=== PATIENT | female | born 1985 | race American Indian/Alaskan Native ===

== ENCOUNTER 2017-04-21 05:57 | Inpatient (IN) | payer OTHER ==
--- NOTE | 2017-04-20 09:56 | Anesthesia Consultation ---
Anesthesia Consult and Med Hx Date of service: 04/20/17 - Airway Anesthetic Teeth Evaluation: Good ROM Head & Neck: Adequate Mental/Hyoid Distance: Adequate Mallampati Class: Class II Intubation Access Assessment: Probably Good - Pulmonary Exam CTA: Yes - Cardiac Exam Cardiac Exam: RRR - Pre-Operative Health Status ASA Pre-Surgery Classification: ASA2 Proposed Anesthetic Plan: General - Pulmonary Hx Smoking: No - Cardiovascular System Hx Hypertension: Yes (x 2 yrs - exercise tolerance adequate) Hx Coronary Artery Disease: No Hx Heart Attack/AMI: No Hx Heart Murmur: No Hx Peripheral Vascular Disease: No - Central Nervous System Hx Psychiatric Problems: No - Gastrointestinal Hx Gastroesophageal Reflux Disease: No - Other Systems Hx Alcohol Use: Yes (about twice per month) Hx Cancer: No
[2017-04-20 10:09] LABS: Basophils # (Auto) 0.1 K/mm3 (0.0-0.1); Basophils % (Auto) 0.7 % (0.0-1.8); Eosinophils # (Auto) 0.6 K/mm3 (0.0-0.4); Eosinophils % (Auto) 7.1 % (0.0-4.3); Hematocrit 42.9 % (30.3-42.9); Hemoglobin 14.1 gm/dl (10.1-14.3); Lymphocytes # (Auto) 2.9 K/mm3 (1.2-5.4); Lymphocytes % (Auto) 34.1 % (13.4-35.0); Mean Corpuscular HGB Conc 33 % (30-34); Mean Corpuscular Hemoglobin 28 pg (28-32); Mean Corpuscular Volume 86 fl (79-97); Monocytes # (Auto) 0.8 K/mm3 (0.0-0.8); Monocytes % (Auto) 9.6 % (0.0-7.3); Platelet Count 333 K/mm3 (140-440); Red Blood Count 4.97 M/mm3 (3.65-5.03); Red Cell Distribution Width 13.5 % (13.2-15.2)
[2017-04-20 10:25] LABS: BUN/Creatinine Ratio 10; Blood Urea Nitrogen 7 mg/dL (7-17); Calcium 9.2 mg/dL (8.4-10.2); Hemolysis Index 25
[~2017-04-21 05:57] MED LIST: MARCAINE 0.5% INFILTRATI NR; NACL 0.9% 1000 ML 1,000 ML IV SCH; NACL P/F VIAL (10 ML) INFILTRATI NR; PEPCID PO NR; SUBLIMAZE IV NR; VERSED IV NR; XYLOCAINE 1% 20 mL INFILTRATI NR
[2017-04-21] MEDS ORDERED: SUBLIMAZE ONE (07:12)
[2017-04-21] MEDS ORDERED: DIPRIVAN 10 MG/ML IV ONE (07:13)
[2017-04-21] MEDS ORDERED: SUBLIMAZE IV ONE (07:18)
[2017-04-21] MEDS ORDERED: ZOFRAN IV PRN (07:18)
--- NOTE | 2017-04-21 07:18 | Anesthesia Day of Surgery ---
Anesthesia Day of Surgery - Day of Surgery Patient Examined: Yes Patient H&P Reviewed: Yes Patient is NPO: Yes
[2017-04-21] MEDS ORDERED: XYLOCAINE MPF 2% ONE (07:22)
[2017-04-21] MEDS ORDERED: ZEMURON IV ONE (07:23)
[2017-04-21] MEDS ORDERED: MARCAINE 0.5% 60 ML INFILTRATI ONE (07:43)
[2017-04-21] MEDS ORDERED: ANCEF/STERILE WATER 2 GM/20 ML 2 GM/20 ML SYRINGE IV NR (08:00)
[2017-04-21] MEDS ORDERED: VERSED IV NR (08:00)
--- NOTE | 2017-04-21 08:02 | History and Physical Report ---
History of Present Illness Date of examination: 04/21/17 Chief complaint: Pelvic mass History of present illness: Pt is a 31yo BF LMP 11/2015 presents for surgical evaluation and treatment of a symptomatic pelvic mass. Pelvic u/s showed the uterus 8.3 x 4 x 4cm with a 20 x 15cm complex mass with solid and cystic areas suggestive of a complex ovarian tumor. CA125 -45 (slightly elevated). She is therefore scheduled for a Exploratory Laparotomy with Ovarian cystectomy, possible Oophorectomy. Past History Past Medical History: hypertension Past Surgical History: no surgical history Family/Genetic History: hypertension Social history: no significant social history, single Medications and Allergies Allergies Allergy/AdvReac Type Severity Reaction Status Date / Time No Known Allergies Allergy Unverified 04/17/17 11:18 Home Medications Medication Instructions Recorded Confirmed Last Taken Type Hydrochlorothiazide 12.5 mg PO DAILY 04/17/17 04/17/17 Unknown History amLODIPine [Norvasc] 5 mg PO DAILY 04/17/17 04/17/17 Unknown History Active Meds: Active Medications Hydromorphone HCl (Dilaudid) 0.5 mg IV Q10MIN PRN PRN Reason: Pain , Severe (7-10) Sodium Chloride (Nacl 0.9% 1000 Ml) 1,000 mls @ 42 mls/hr IV DIRECT TIFFANIE Last Admin: 04/21/17 07:46 Dose: 42 mls/hr Midazolam HCl (Versed) 2 mg IV PREOP NR Stop: 04/21/17 23:59 Ondansetron HCl (Zofran) 4 mg IV ONCE PRN PRN Reason: Nausea And Vomiting Review of Systems All systems: negative - Vital Signs Vital signs: Vital Signs Temp Pulse Resp BP 98.8 F 76 16 160/90 04/20/17 09:20 04/20/17 09:20 04/20/17 09:20 04/20/17 09:20 Temp Pulse Resp BP Pulse Ox 97.6 F 85 16 130/77 100 04/21/17 07:23 04/21/17 07:23 04/21/17 07:23 04/21/17 07:23 04/21/17 07:23 - Physical Exam Breasts: Positive: deferred Cardiovascular: Regular rate Lungs: Positive: Clear to auscultation Abdomen: Positive: normal appearance, soft Genitourinary (Female): Positive: normal external genitalia Uterus: Positive: normal size Adnexa: right: mass Extremities: Positive: normal Results Result Diagrams: 04/20/17 09:30 04/20/17 09:30 Abnormal lab results 04/20/17 04/20/17 Range/Units 09:30 09:30 [place] % (Auto) 9.6 H (0.0-7.3) % Eos % (Auto) 7.1 H (0.0-4.3) % Eos # 0.6 H (0.0-0.4) K/mm3 Chloride 97.9 L (98-107) mmol/L Glucose 103 H (65-100) mg/dL All other labs normal. Ultrasound: report reviewed Assessment and Plan - Patient Problems (1) Pelvic mass in female Onset Date: 04/21/17 Current Visit: Yes Status: Acute Plan to address problem: A: Pelvic mass - most likely ovarian in origin P: Admit for an Exploratory Laparotomy with Ovarian cystectomy possible Oophorectomy
[2017-04-21] MEDS ORDERED: NACL 0.9% IR ONE (08:48)
[2017-04-21] MEDS ORDERED: NEO SYNEPHRINE/NS Syringe(OR USE) IV ONE (09:00)
[2017-04-21] MEDS ORDERED: DECADRON ONE (09:01)
[2017-04-21] MEDS ORDERED: DILAUDID ONE (09:14)
[2017-04-21] MEDS ORDERED: LACTATED RINGERS 1,000 ML ONE (09:34)
[2017-04-21] MEDS ORDERED: ZOFRAN ONE (09:57)
[2017-04-21] MEDS ORDERED: ROBINUL ONE ×2 (09:58)
[2017-04-21] MEDS ORDERED: NEOSTIGMINE ONE (09:58)
[2017-04-21] MEDS ORDERED: TORADOL ONE ×2 (10:50→10:51)
--- NOTE | 2017-04-21 10:55 | Operative Report ---
Operative Report Operative Report: Date of procedure: 04/21/2017 Pre-operative diagnosis: 1. Pelvic mass 2. Left ovarian complex mass Post-operative diagnosis: Same Procedure name(s): 1. Exploratory laparotomy 2. Left oophorectomy Surgeon: Thomas Keen MD Polisher Eyeglass Frames: None Anesthesia: CESARIO Block followed by general endotracheal intubation EBL: 100 mL's Findings: A 20 x 20 cm complex left ovarian mass. A normal right ovary. Normal uterus with normal tubes bilaterally. Procedure: After the patient was correctly identified, she was prepped and draped in the usual sterile fashion and placed in the dorsal lithotomy position. First a skin knife was used to make a vertical skin incision, extending the incision about 5 centimeters above the umbilicus. The fascia was nicked in the midline and extended superiorly and inferiorly. The peritoneum was entered and there was copious amounts of clear straw-colored fluid, which a specimen was obtained and sent to pathology. Exploration of the pelvic organs found a large complex mass occupying the entire pelvis and extending beyond the umbilicus. The incision was extended vertically so that the mass could be lifted from the pelvic cavity intact. The mass was examined and found to be originating from the left ovary. The right ovary was found to be normal, and the uterus is normal. The left fallopian tube was excised from the mass using the Enseal, by clamping and cauterizing and cutting across the mesosalpinx until the entire left fallopian tube was freed. The utero-ovarian ligament was also clamped cauterized and cut using the Enseal, thus freeing the mass which was sent to pathology. Copious amounts of irrigation performed. Again the left fallopian tube was found to be normal and excellent hemostasis was assured. At this point the procedure was considered complete. The Tisseel sealant was sprayed over the left oophorectomy site. All instruments were removed from the abdomen, and the fascia along with peritoneum was closed together using 0 PDS suture in a running fashion. The subcutaneous layer was made hemostatic using Bovie cautery, and re-approximated using 0 Vicryl suture in figure 8 configurations, and the skin edges were re-approximated using 4 Vicryl suture in a sub-cuticular fashion. The patient tolerated the procedure well and was transferred to recovery room in stable condition.
[2017-04-21] MEDS ORDERED: NARCAN 0.4 MG/1 ML IV PRN (10:59)
[2017-04-21] MEDS ORDERED: BENADRYL IV PRN (10:59)
[2017-04-21] MEDS ORDERED: REGLAN IV PRN (10:59)
[2017-04-21] MEDS ORDERED: NACL 0.9% 1000 ML 1,000 ML IV SCH (11:00)
[2017-04-21] MEDS ORDERED: MORPHINE PCA 30MG/30ML IV SCH (11:00)
[2017-04-21] MEDS ORDERED: SODIUM CHLORIDE FLUSH SYRINGE 10 ML IV PRN (11:01)
[2017-04-21] MEDS: DILAUDID IV PRN ×2 (11:11→11:23)
[2017-04-21] MEDS ORDERED: ceFAZolin 1 GM in NACL 0.9% 20 ML IV SCH ×2 (12:00→14:00)
[2017-04-21] MEDS ORDERED: ANCEF/NS 1 GM/50 ML 1 GM/50 ML BAG IV SCH (12:00)
--- NOTE | 2017-04-21 14:04 | Post Anesthesia Evaluation ---
- Post Anesthesia Evaluation Patient Participated: Yes Airway Patent: Yes Stable Respiratory Function: Yes Nausea/Vomiting: No Temp > 96.8F: Yes Pain Manageable: Yes Adequeate Hydration: Yes Anesthesia Complications: No
[2017-04-21] MEDS: TORADOL IV SCH (18:01)
[2017-04-21] MEDS: D5LR 1,000 ML IV SCH (19:10)
[2017-04-22] MEDS: TORADOL IV SCH ×5 (00:05→20:53)
[2017-04-22] MEDS: D5LR 1,000 ML IV SCH (02:05)
[2017-04-22] MEDS ORDERED: ceFAZolin 1 GM in NACL 0.9% 20 ML IV SCH (03:00)
[2017-04-22 05:24] LABS: Hematocrit 39.1 % (30.3-42.9); Hemoglobin 12.7 gm/dl (10.1-14.3)
--- NOTE | 2017-04-22 08:53 | Progress Note ---
Assessment and Plan - Patient Problems (1) Pelvic mass in female Onset Date: 04/21/17 Current Visit: Yes Status: Resolved (2) Status post left oophorectomy Onset Date: 04/22/17 Current Visit: Yes Status: Resolved Plan to address problem: A: S/P Left Oophorectomy - POD #1 Doing well P: Continue RPOC Anticipate discharge in 24-48hrs Subjective - Subjective Date of service: 04/22/17 Principal diagnosis: s/p Left Oophorectomy - POD #1 Interval history: Pt is s/p a Left Oophorectomy, and doing well. Discussed findings at surgery. Tolerating a liquid diet without nausea or vomiting. Patient reports: appetite normal, voiding normally, pain well controlled, ambulating normally, no flatus, no nauseated Objective - Vital Signs Latest vital signs: Vital Signs Temp Pulse Resp BP BP Pulse Ox 04/22/17 05:45 16 04/22/17 04:20 98.0 F 93 H 18 129/66 04/22/17 00:05 16 04/22/17 00:00 98.2 F 99 H 18 138/75 04/21/17 20:00 18 04/21/17 16:15 97.3 F L 104 H 18 140/93 94 04/21/17 13:09 16 04/21/17 12:15 99.4 F 95 H 14 149/97 149/97 97 04/21/17 11:55 98.5 F 91 H 15 145/93 99 04/21/17 11:53 18 04/21/17 11:45 93 H 18 146/99 98 04/21/17 11:30 91 H 13 157/100 98 04/21/17 11:23 14 04/21/17 11:15 92 H 18 148/100 100 04/21/17 11:11 15 04/21/17 11:00 96 H 23 145/109 99 04/21/17 10:55 95 H 21 156/108 99 04/21/17 10:52 98.1 F 93 H 18 168/106 100 Intake and Output 04/21/17 04/22/17 04/22/17 22:59 06:59 14:59 Intake Total 1224.583 Output Total 900 1400 Balance -900 -175.417 Intake: IV 864.583 D5lr 1,000 ml @ 125 mls/ 864.583 hr IV DIRECT TIFFANIE Rx#: [id number] Oral 360 Output: Urine 900 1400 Indwelling Catheter 900 1400 Other: Total, Intake Amount 240 Total, Output Amount 900 800 - Exam Breasts: Present: deferred Cardiovascular: Present: Regular rate Lungs: Present: Clear to auscultation Abdomen: Present: normal appearance, soft Extremities: Present: normal Incision: Present: normal, dry, intact, dressed - Labs Labs: Laboratory Tests 04/20/17 04/20/17 04/20/17 09:30 09:30 09:30 WBC 8.5 RBC 4.97 Hgb 14.1 Hct 42.9 MCV 86 MCH 28 MCHC 33 RDW 13.5 Plt Count 333 Lymph % (Auto) 34.1 [place] % (Auto) 9.6 H Eos % (Auto) 7.1 H Baso % (Auto) 0.7 Lymph # 2.9 [place] # 0.8 Eos # 0.6 H Baso # 0.1 Seg Neutrophils % 48.5 Seg Neutrophils # 4.1 Sodium 137 Potassium 3.7 Chloride 97.9 L Carbon Dioxide 28 Anion Gap 15 BUN 7 Creatinine 0.7 Estimated GFR > 60 BUN/Creatinine Ratio 10 Glucose 103 H Calcium 9.2 HCG, Qual Negative 04/22/17 04:30 WBC RBC Hgb 12.7 Hct 39.1 MCV MCH MCHC RDW Plt Count Lymph % (Auto) [place] % (Auto) Eos % (Auto) Baso % (Auto) Lymph # [place] # Eos # Baso # Seg Neutrophils % Seg Neutrophils # Sodium Potassium Chloride Carbon Dioxide Anion Gap BUN Creatinine Estimated GFR BUN/Creatinine Ratio Glucose Calcium HCG, Qual
[2017-04-22] MEDS: SENOKOT S PO SCH ×2 (09:11→23:33)
[2017-04-22] MEDS: COLACE PO SCH ×2 (09:12→23:35)
[2017-04-22] MEDS: NORCO 5/325 PO PRN (09:12)
[2017-04-22] MEDS: PERCOCET 5/325 PO PRN ×2 (12:07→18:12)
[2017-04-22] MEDS: MILK OF MAGNESIA PO PRN (18:08)
[2017-04-22] MEDS: NORVASC PO SCH (22:48)
[2017-04-22] MEDS: HCTZ PO SCH (22:50)
[2017-04-23] MEDS: PERCOCET 5/325 PO PRN ×2 (01:25→22:16)
[2017-04-23] MEDS: MILK OF MAGNESIA PO PRN (04:41)
[2017-04-23] MEDS: TORADOL IV SCH ×3 (04:42→19:44)
--- NOTE | 2017-04-23 09:25 | Progress Note ---
Assessment and Plan - Patient Problems (1) Pelvic mass in female Onset Date: 04/21/17 Current Visit: Yes Status: Resolved (2) Status post left oophorectomy Onset Date: 04/22/17 Current Visit: Yes Status: Resolved Plan to address problem: A: S/P Left Oophorectomy - POD #2 Doing well Slow return of bowel function P: Continue RPOC Anticipate discharge later today Subjective - Subjective Date of service: 04/23/17 Principal diagnosis: s/p Left Oophorectomy - POD #2 Interval history: Pt is s/p a Left Oophorectomy, and doing well. Tolerating a liquid diet without nausea or vomiting, ambulating and voiding without difficulty. Patient reports: appetite normal, voiding normally, pain well controlled, ambulating normally, no flatus, no nauseated Objective - Vital Signs Latest vital signs: Vital Signs Temp Pulse Resp BP BP Pulse Ox 04/23/17 01:20 98.2 F 64 20 112/72 04/22/17 22:48 75 123/80 04/22/17 20:35 99.5 F 73 18 147/96 04/22/17 16:08 98.6 F 87 18 142/84 96 04/22/17 12:15 98.8 F 63 18 145/79 96 Intake and Output 04/22/17 04/23/17 04/23/17 22:59 06:59 14:59 Intake Total 1440 360 Output Total 3 Balance 1437 360 Intake: Oral 600 Intake, Free Water 840 360 Output: Urine 3 Void 3 Other: Total, Intake Amount 600 Total, Output Amount 3 # Voids Void 1 1 - Exam Breasts: Present: deferred Cardiovascular: Present: Regular rate Lungs: Present: Clear to auscultation Abdomen: Present: normal appearance, soft, normal bowel sounds Extremities: Present: normal Incision: Present: normal, dry, intact, dressed
[2017-04-23] MEDS: SENOKOT S PO SCH ×2 (12:30→22:12)
[2017-04-23] MEDS: COLACE PO SCH ×2 (12:30→22:12)
[2017-04-23] MEDS: NORVASC PO SCH (12:43)
[2017-04-23] MEDS: HCTZ PO SCH (12:44)
[2017-04-23] MEDS: NORCO 5/325 PO PRN (22:10)
[2017-04-24] MEDS: TORADOL IV SCH ×2 (00:36→06:26)
[2017-04-24] MEDS: PERCOCET 5/325 PO PRN (08:00)
--- NOTE | 2017-04-24 08:45 | Progress Note ---
Assessment and Plan - Patient Problems (1) Pelvic mass in female Onset Date: 04/21/17 Current Visit: Yes Status: Resolved (2) Status post left oophorectomy Onset Date: 04/22/17 Current Visit: Yes Status: Resolved Plan to address problem: A: S/P Left Oophorectomy - POD #3 Doing well P: May go home today Subjective - Subjective Date of service: 04/24/17 Principal diagnosis: s/p Left Oophorectomy - POD #3 Interval history: Pt is s/p a Left Oophorectomy, and doing well. Tolerating a reg diet without nausea or vomiting, ambulating and voiding without difficulty. Patient reports: appetite normal, voiding normally, pain well controlled, flatus , ambulating normally, no nauseated Objective - Vital Signs Latest vital signs: Vital Signs Temp Pulse Resp BP BP Pulse Ox 04/24/17 04:00 98.6 F 77 16 123/81 04/23/17 16:31 97.8 F 74 20 151/92 96 04/23/17 11:51 98.4 F 83 20 144/92 95 Intake and Output 04/23/17 04/24/17 04/24/17 22:59 06:59 14:59 Intake Total 240 300 Balance 240 300 Intake: Oral 240 Intake, Free Water 300 Other: Total, Intake Amount 240 # Voids Void 1 - Exam Cardiovascular: Present: Regular rate Lungs: Present: Clear to auscultation Abdomen: Present: normal appearance, soft Extremities: Present: normal Incision: Present: normal, dry, intact, dressed
--- NOTE | 2017-04-24 08:46 | Discharge Summary ---
Providers - Providers Date of Admission: 04/21/17 11:01 Date of discharge: 04/24/17 Attending physician: JORGE ZENG Primary care physician: JACK MISTRY Hospitalization Reason for admission: other (Pelvic pain; pelvic mass) Procedure: other (Exploratory laparotomy with left Oophorectomy) Incision: normal, dry, intact, dressed Other procedures: none complications: none Discharge diagnosis: other (s/p Left oophorectomy) Hospital course: Pt is a 31yo BF LMP 11/2015 who presented for surgical evaluation and treatment of a symptomatic pelvic mass. Pelvic u/s showed the uterus 8.3 x 4 x 4cm with a 20 x 15cm complex mass with solid and cystic areas suggestive of a complex ovarian tumor. CA125 -45 (slightly elevated). She underwent an uncomplicated Exploratory Laparotomy with Left Oophorectomy, and tolerated the procedure well. She had slow return of bowel function, but by POD #3 she was tolerating a reg diet without nausea or vomiting, ambulating and voiding without difficulty. She was therefore discharged to home on POD#3 in stable condition. Condition at discharge: Good Disposition: DC-01 TO HOME OR SELFCARE - Discharge Diagnoses (1) Pelvic mass in female Status: Resolved (2) Status post left oophorectomy Status: Resolved Plan - Discharge Medications Prescriptions: HYDROcodone/APAP 5-325 [[place] 5-325 mg TAB] 1 each PO Q6HR PRN #30 tablet PRN Reason: Pain, Moderate (4-6) Ibuprofen [Motrin] 800 mg PO Q8HR PRN #30 tablet PRN Reason: Moder Pain Unrelieved By [place] - Provider Discharge Summary Activity: routine, no sex for 6 weeks, no heavy lifting 4 weeks, no strenuous exercise Diet: routine Instructions: routine Additional instructions: [] Smoking cessation referral if applicable(refer to patient education folder for contact #) [] Refer to [facility] Booklet Call your doctor immediately for: * Fever > 100.5 * Heavy vaginal bleeding ( >1 pad per hour) * Severe persistent headache * Shortness of breath * Reddened, hot, painful area to leg or breast * Drainage or odor from incision. * Keep incision clean and dry at all times and follow doctor's instructions regarding bathing/showering - Follow up plan Follow up: JACK MISTRY MD [Primary Care Provider] - 7 Days JORGE ZENG MD [Staff Physician] - 14 Days
[2017-04-24] MEDS: COLACE PO SCH (11:00)
[2017-04-24] MEDS: NORVASC PO SCH (11:01)
[2017-04-24] MEDS: HCTZ PO SCH (11:01)
[2017-04-24 14:56] VITALS: BP 119/71
== END 2017-04-24 15:30 | disposition home or self-care (01) | DRG 743 ==
LOC: OR 05:57 → OB 11:01
PROVIDERS: ADMIT Obstetrics & Gynecology; ATTEND Obstetrics & Gynecology
PROC: 0UT10ZZ Resection of Left Ovary, Open Approach (ICD-10-PCS; principal; 2017-04-21)
DX: N83.9 Noninflammatory disorder of ovary, fallopian tube and broad ligament, unspecified (principal); R19.00 Intra-abdominal and pelvic swelling, mass and lump, unspecified site; I10 Essential (primary) hypertension; Z90.721 Acquired absence of ovaries, unilateral; Z82.49 Family history of ischemic heart disease and other diseases of the circulatory system; Z79.899 Other long term (current) drug therapy
CPT/HCPCS: 36415; 64450; 80048; 81025; 84703; 85014; 85018; 85025; 88112; 88307; 88342; C9250; J0690; J1100; J1170; J1885; J2250; J2270; J2370; J2405; J2704; J2710; J3010; J7030; J7120; J7121